=== PATIENT | female | born 1995 | race Caucasian/White ===

== ENCOUNTER 2023-09-04 23:24 | Emergency (ER) | payer BC, SELFPAY ==
--- NOTE | ~2023-09-04 | XR_ITS ---
EXAMINATION: XR chest 1V portable DATE: 09/05/2023 03:39 INDICATION: Chest pain and shortness of breath TECHNIQUE: frontal view of the chest was obtained. COMPARISON: None FINDINGS: Patchy airspace opacities in the right lower lung zone consistent with pneumonia. Left lung is clear. No pulmonary edema, pleural effusion or pneumothorax. The cardiomediastinal silhouette is normal. IMPRESSION: 1. Pneumonia in the right lower lung. Reviewed, dictated and finalized at location A.
[2023-09-04 23:25] VITALS: BP 131/87; PULSE 115; RESP 20; TEMP 37.1; O2SAT 98
--- NOTE | 2023-09-04 23:30 | ECG_ITS ---
Measurements Intervals [place] Rate: 117 P: 40 [place]: 120 QRS: 51 QRSD: 110 T: 30 QT: 306 QTc: 428 Interpretive Statements SINUS TACHYCARDIA POSSIBLE LEFT ATRIAL ENLARGEMENT MINIMAL Q WAVES- INFERIOR LEADS BORDERLINE T WAVE ABNORMALITY- ANTERIOR LEADS ABNORMAL ECG NO PREVIOUS ECG AVAILABLE FOR COMPARISON Electronically Signed On 09-05-2023 7:53:59 CDT by Man Davey D.O.
[2023-09-05] VITALS (11 sets, daily range): BP systolic 91–119; BP diastolic 49–72; PULSE 81–121; RESP 14–23; O2SAT 95–98
[2023-09-05 00:01] LABS: Alanine Aminotransferase 16 U/L (6-35); Albumin Level 3.6 g/dL (3.5-5.1); Alkaline Phosphatase 105 U/L (38-126); Anion Gap 3 mmol/L (8-16); Aspartate Amino Transferase 21 U/L (14-36); Bilirubin,Total 0.2 mg/dL (0.2-1.3); Blood Urea Nitrogen 5 mg/dL (7-17); Calcium 9.2 mg/dL (8.4-10.2); Carbon Dioxide 24 mmol/L (22-30); Chloride 106 mmol/L (98-107); Estimated CRCL calculation 151 ml/min; Estimated Glomerular Filt Rate > 60; Glucose 85 mg/dL (65-110); Lipase 67 U/L (23-300); Potassium 3.7 mmol/L (3.4-5.0); Sodium 133 mmol/L (137-145)
[2023-09-05 00:02] LABS: INR 0.9; Prothrombin Time 12.1 Seconds (11.1-14.7)
[2023-09-05 00:03] LABS: Partial Thromboplastin Time 29.2 Seconds (22.3-36.8)
[2023-09-05 00:09] LABS: Basophils Absolute Auto 0.1 K/mm3 (0.0-0.1); Basophils Percent Auto 0.3 % (0.2-1.2); Eosinophils Absolute Auto 0.1 K/mm3 (0-0.3); Eosinophils Percent Auto 0.6 % (0-4.4); Hematocrit 34.5 % (37.0-47.0); Hemoglobin 11.2 g/dL (12.0-15.0); Immature Granulocyte Absolute 0.26 K/mm3 (0.00-0.031); Immature Granulocyte Percent A 1.4 % (0-0.5); Lymphocytes Absolute Auto 2.63 K/mm3 (0.9-3.2); Lymphocytes Percent Auto 13.9 % (18.3-44.2); Mean Corpuscular HGB Conc 32.5 g/dl (32-36); Mean Corpuscular Volume 86.3 fl (80-100); Mean Platelet Volume 8.4 fl (7.4-10.4); Monocytes Absolute Auto 0.8 K/mm3 (0.1-0.6); Monocytes Percent Auto 4.1 % (2.6-8.5); Neutrophils Absolute Auto 15.1 K/mm3 (1.3-6.7); Neutrophils Percent Auto 79.7 % (45.5-73.1); Platelet Count Result 243 k/mm3 (150-375); Red Cell Distribution Width 12.5 % (11.5-14.5); White Blood Count 18.9 K/mm3 (4.5-10.0)
[2023-09-05 00:11] LABS: Troponin I < 0.012 ng/mL (0.000-0.034)
[2023-09-05 02:05] LABS: Influenza A QL RT-PCR Negative (Negative); Influenza B QL RT-PCR Negative (Negative); RSV RNA, RT-PCR Negative (Negative); SARS-CoV-2 RNA PCR Negative (Negative)
[2023-09-05 02:13] LABS: Appearance Urine Clear (Clear); Bilirubin Urine Negative (Negative); Blood Urine Negative (Negative); Color Urine Yellow (Yellow); Glucose Urine UA Negative (Negative); Ketones Urine Negative (Negative); Leukocyte Esterase Ur Negative LEU/UL (Negative); Nitrate Urine Negative (Negative); Protein Urine Negative (Negative); Specific Grav Ur 1.009 (1.001-1.035); Urobilinogen Urine 0.2 mg/dL (<2.0); pH Urine 7.5 (5.0-9.0)
--- NOTE | 2023-09-05 02:34 | ED.GENADULT ---
HPI - General Adult General Chief complaint: Unspecified Stated complaint: 27 weeks, gagged on vomit , chest pain Time Seen by Provider: 09/05/23 02:30 History of Present Illness HPI narrative: Patient is a 28-year-old female who presents to the emergency department this morning with concerns for choking on some. Patient states that she was taking a nap this evening when she woke up and felt as though she was choking on some vomit. Patient is currently [address] Haines through [facility] as her OBGYN. Patient denies any current nausea or vomiting episodes and states that she does not take anything at home for nausea or vomiting, only medicine for acid reflux. She is currently any abdominal pain, cramping, vaginal bleeding or spotting. She denies any fevers or chills. Patient states that she feels some mild shortness of breath but denies any active chest pain. He there are no other modifying, alleviating, or precipitating factors at this time. Related Data Allergies Allergy/AdvReac Type Severity Reaction Status Date / Time No Known Allergies Allergy Verified 09/05/23 02:43 Review of Systems Review of Systems: All systems are reviewed and are negative unless stated otherwise in the HPI. PMFSH Comments Denies any significant past medical or surgical history, denies any significant family history and denies any tobacco use, alcohol abuse or illicit drug use. Exam Narrative: General: Alert, awake, afebrile, in no acute distress. HEENT: PERRL, no rhinorrhea, no post nasal drip, oropharynx clear. Neck: Trachea midline, no JVD, no lymphadenopathy. Cardiovascular: Regular rate and rhythm, no murmurs, rubs or gallops, no peripheral edema. Respiratory: Clear to auscultation bilaterally, no tachypnea, no wheezing, no rhonchi, no rubs, no respiratory distress. Abdomen: Gravid, nontender, nondistended, no rebound, no guarding, no peritoneal signs. Musculoskeletal: No joint swelling or deformity, normal muscle tone. Skin: No rashes or petechia, no signs of infection. Psychiatric: Alert and oriented, normal behavior and judgment for situation. Neurological: Alert and oriented to person, place, and time. Follows all commands. No focal deficits, speech is clear and fluent. Course Vital Signs Vital signs: Vital Signs Temperature 98.7 F 09/04/23 23:25 Pulse Rate 115 H 09/04/23 23:25 Respiratory Rate 20 09/04/23 23:25 Blood Pressure 131/87 09/04/23 23:25 Pulse Oximetry 98 09/04/23 23:25 Oxygen Delivery Room Air 09/04/23 23:25 Temperature 98.7 F 09/04/23 23:25 Pulse Rate 88 09/05/23 05:31 Respiratory Rate 20 09/05/23 05:31 Blood Pressure 99/64 L 09/05/23 05:31 Pulse Oximetry 96 09/05/23 05:31 Oxygen Delivery Room Air 09/04/23 23:25 Medical Decision Making MDM Narrative Medical decision making narrative: The patient was evaluated by myself in the emergency department. History is obtained from patient who is an independent historian and physical exam was performed. External medical records were reviewed at this time. IV was established and pertinent tests were ordered. Patient was administered a 1.5 L IV fluid bolus with normal saline. EKG was obtained which revealed Sinus tachycardia rate of 117 beats per minute. No ST changes, T wave inversions or evidence of acute ischemia. EKG was independently interpreted by me and is currently pending official cardiology read. Laboratory results obtained revealing a leukocytosis of 18.9, otherwise unremarkable. Imaging studies obtained included CXR which was independently interpreted by me revealing right lower lobe opacity concerning for aspiration pneumonia given her clinical presentation, CXR is currently pending final radiology interpretation. Differential diagnosis considerations include aspiration pneumonia, acute viral syndrome including COVID/ influenza. Leukocytosis could be reactive secondary to patien
[2023-09-05] MEDS: SODIUM CHLORIDE 0.9% IV 1,000 ML 999 ML IV CONT (02:44)
[2023-09-05 02:56] LABS: Add Urine Microscopic? NO
[2023-09-05 03:31] LABS: Troponin I < 0.012 ng/mL (0.000-0.034)
[2023-09-05] MEDS: SODIUM CHLORIDE 0.9% IV 1,000 ML 500 ML IV CONT (04:51)
[2023-09-05] MEDS: ONDANSETRON INJ 4 MG/2 ML VIAL IV PUSH (04:51)
== END 2023-09-05 06:01 | disposition home or self-care (01) ==
PROVIDERS: Emergency Medicine; Emergency Provider Emergency Medicine
DX: O99.512 Diseases of the respiratory system complicating pregnancy, second trimester (principal); J69.0 Pneumonitis due to inhalation of food and vomit; Z20.822 Contact with and (suspected) exposure to COVID-19; Z3A.27 27 weeks gestation of pregnancy
CPT/HCPCS: 36415; 71045; 80053; 83690; 84484; 85025; 85610; 85730; 87637; 93005; 96361; 96374; 99284; J2405; J7030